=== PATIENT | female | born 2000 | race Caucasian/White ===

== ENCOUNTER 2018-08-26 22:30 | Emergency (ER) | payer BC ==
--- NOTE | 2018-08-26 23:34 | ED ---
Shortness of Breath - HPI Summary HPI Summary: This patient is a 17 year old F presenting to [facility] with a chief complaint of progressively worsening cough and SOB for the past three weeks. She states cough was productive at first and is now dry. Additionally reports SOB with the sensation of throat tightening from time to time. Chest pain only occurs with cough. She reports a low grade fever of 100F. She reports difficulty sleeping due to symptoms. Denies rhinorrhea. Positive influenza B contact at home. - History of Current Complaint Chief Complaint: EDShortnessOfBreath Time Seen by Provider: 08/26/18 23:26 Hx Obtained From: Patient Onset/Duration: Gradual Onset, Lasting Weeks Timing: Constant Associated Signs & Symptoms: Cough (Nonproductive), Chest Pain w/Cough - Allergy/Home Medications Allergies/Adverse Reactions: Allergies Allergy/AdvReac Type Severity Reaction Status Date / Time MS Clarithromycin Allergy Hives Verified 07/23/16 15:34 [From Biaxin] PMH/Surg Hx/FS Hx/Imm Hx Endocrine/Hematology History: Denies: Hx Diabetes, Hx Thyroid Disease Cardiovascular History: Denies: Hx Hypertension, Hx Pacemaker/ICD Respiratory History: Denies: Hx Asthma, Hx Chronic Obstructive Pulmonary Disease (COPD) GI History: Denies: Hx Ulcer History: Denies: Hx Renal Disease Sensory History: Denies: Hx Hearing Aid Psychiatric History: Denies: Hx Panic Disorder - Surgical History Surgery Procedure, Year, and Place: none Infectious Disease History: No Infectious Disease History: Denies: Hx Clostridium Difficile, Hx Hepatitis, Hx Human Immunodeficiency Virus (HIV), Hx of Known/Suspected MRSA, Hx Shingles, Hx Tuberculosis, Hx Known/ Suspected VRE, Hx Known/Suspected VRSA, History Other Infectious Disease, Traveled Outside the [place] in Last 30 Days - Family History Known Family History: Negative: Diabetes - Social History Alcohol Use: None Substance Use Type: Reports: None Smoking Status (MU): Never Smoked Tobacco Review of Systems Positive: Fever Positive: Chest Pain Positive: Shortness Of Breath, Cough All Other Systems Reviewed And Are Negative: Yes Physical Exam - Summary Physical Exam Summary: Appearance: Well-appearing, Well-nourished, lying in bed comfortably Skin: Warm, dry, no obvious rash Eyes: sclera anicteric, no conjunctival pallor ENT: mucous membranes moist, pharynx appears normal Neck: Supple, nontender Respiratory: Clear to auscultation, no signs of respiratory distress Cardiovascular: Normal S1, S2. No murmurs. Normal distal pulses in tibial and radial bilaterally. Abdomen: Soft, nontender, normal active bowel sounds present Musculoskeletal: Normal, Strength/ROM Intact Neurological: A&Ox3, awake and alert, mentation is normal, speech is fluent and appropriate Psychiatric: affect is normal, does not appear anxious or depressed Triage Information Reviewed: Yes Vital Signs On Initial Exam: Initial Vitals Temp Pulse Resp BP Pulse Ox 100.3 F 91 22 131/68 100 08/26/18 22:33 08/26/18 22:33 08/26/18 22:33 08/26/18 22:33 08/26/18 22:33 Vital Signs Reviewed: Yes Diagnostics - Vital Signs Vital Signs Temp Pulse Resp BP Pulse Ox 08/26/18 22:33 100.3 F 91 22 131/68 100 - Laboratory Lab Statement: Any lab studies that have been ordered have been reviewed, and results considered in the medical decision making process. Course/Dx - Course Course Of Treatment: 17 year old F presenting to [facility] with a chief complaint of progressively worsening cough and SOB for the past three weeks. She states cough was productive at first and is now dry. Chest pain only occurs with cough. She reports a low grade fever of 100F. She reports difficulty sleeping due to symptoms. Upon exam lungs are clear. Patient is given azithromycin and hydrocodone bitart/acetaminophin. Patient is given prescription for the same and is discharged. - Diagnoses Provider Diagnoses: Acute bronchitis Discharge - Sign-Out/Discharge Documenting (check all that apply): Patient Departure - discharge - Discharge Plan Condition: Good Disposition: HOME Prescriptions: Azithromycin TAB* [Zithromax TAB (Z-HARDIK) 250 mg #6 tabs] 250 mg PO DAILY #4 tab Hydrocodone/Chlorphen P-Stirex [Tussionex Pennkinetic Susp] 5 ml PO BID PRN #45 ml MDD 10 ml PRN Reason: Cough Patient Education Materials: Acute Bronchitis (ED) Referrals: Atul You MD [Primary Care Provider] - 1 Week (if not improving) - Billing Disposition and Condition Condition: GOOD Disposition: Home - Attestation Statements Document Initiated by Scribe: Yes Documenting Scribe: Aracelis Frausto Provider For Whom Scribe is Documenting (Include Credential): Hira Ortiz MD Scribe Attestation: I, Aracelis Frausto, scribed for Hira Ortiz MD on 08/27/18 at 0511. Scribe Documentation Reviewed: Yes Provider Attestation: The documentation as recorded by the scribeAracelis accurately reflects the service I personally performed and the decisions made by me, Hira Ortiz MD Status of Scribe Document: Viewed
[2018-08-26] MEDS ORDERED: Azithromycin TAB* 250 MG PO ONE (23:35)
[2018-08-26] MEDS ORDERED: HYDROcodone/ACETAMIN 5-325 MG* 1 TAB PO ONE (23:35)
[2018-08-27 00:08] VITALS: BP 00/00
== END 2018-08-27 00:07 | disposition home or self-care (01) ==
LOC: ED 22:30
DX: J20.9 Acute bronchitis, unspecified (principal); Z88.1 Allergy status to other antibiotic agents
CPT/HCPCS: 99282; A9270-GY